=== PATIENT | male | born 1995 | race Caucasian/White ===

== ENCOUNTER 2020-03-27 20:15 | Emergency (ER) | payer OTHER, SELFPAY ==
[~2020-03-27] VITALS: Ht 170.2 cm; Wt 72.6 kg
[2020-03-27 20:59] VITALS: BP 122/76
--- NOTE | 2020-03-27 21:02 | NUR ---
PT TRIAGED AND PUT IN TENT
--- NOTE | 2020-03-27 21:17 | NUR ---
PT AMBULATED TO CHAIR A WITH STEADY GAIT.
[2020-03-27 21:50] VITALS: BP 122/76
--- NOTE | 2020-03-27 21:50 | NUR ---
PT WAS SEEN BY ELIZA CHAVARRIA AND WAS TOLD TO GO TO [facility] FOR COVID TESTING. HE IS CURRENTLY ASYMPTOMATIC. INFORMATION PASSED ON TO PATIENT.
--- NOTE | 2020-03-27 21:50 | NUR ---
PT COMING IN TODAY BECAUSE HE WANTS TO BE TESTED FOR COVID. STATES HE HAS A SLIGHT COUGH AND DIZZINESS X 1 DAY. COUGH IS NON-PRODUCTIVE, O2 SAT 97%. PT AFEBRILE. DENIES N/V/D, DENIES HEADACHE, DENIES SORE THROAT. NKA NO MED HX
--- NOTE | 2020-03-27 21:50 | NUR ---
Patient discharged with v/s stable. Written and verbal after care instructions given and explained. Patient verbalized understanding. Ambulatory with steady gait. All questions addressed prior to discharge. Advised to follow up with PMD.
== END 2020-03-27 21:50 | disposition home or self-care (01) ==
LOC: MED 20:15 → EEVIPCON 20:15 → MED 21:50
DX: J02.9 Acute pharyngitis, unspecified (principal)
CPT/HCPCS: 71045; 99283